=== PATIENT | female | born 1945 | race Caucasian/White ===

== ENCOUNTER → 2019-08-18 | Outpatient (CLI) | payer OTHER, MEDICARE ==
[~2019-08-18] MED LIST: ACCUNEB SO1.25 MG/1 INH; ACETAMINOPHEN325 MG PO; ADVAIR 250-501 EACH INH; ADVAIR HFA 230M12 GM INH; ALEVE220 M1 PO; ALEVE220 MG PO; ASPIRIN325 PO; AVAPRO300 MG PO; AVAPRO75 MG PO; BYSTOLIC 5 MG5 M1 PO; CALCIUM 500 +1 EAC5 PO; CALCIUM CITRATE PO; CENTRUM SILVER1 EAC4 PO; COLACE100 MG PO; COUMADIN 2 MG TA2 M1 PO; COUMADIN 5 MG TA5 M1 PO; GLUCOPHAGE XR500 M1 PO; HYDROCHLOROTHIA25 M2 PO; HYDROCODONE-APA1 TA1 PO; KEFLEX500 MG PO; KLOR-CON M1010 MEQ PO; LACTINEX CHEWA1 EACH PO; LIPITOR 20 MG T20 M1 PO; METFORMIN HCL500 MG PO; PERCOCET 10-321 EACH PO; PROBIOTIC1 EAC1 PO; SENNA LAXATIVE1 EACH PO; TYLENOL325 MG PO; VASCULERA630 MG PO; VITAMIN D2000 UNIT PO; VITAMINC500 PO; XARELTO10 MG PO; XOPENEX HF1 UDINHALE INH
== END ==
LOC: HYPER 07:55
DX: L03.115 Cellulitis of right lower limb (principal); L03.116 Cellulitis of left lower limb; I87.323 Chronic venous hypertension (idiopathic) with inflammation of bilateral lower extremity; I12.9 Hypertensive chronic kidney disease with stage 1 through stage 4 chronic kidney disease, or unspecified chronic kidney disease; N18.3 Chronic kidney disease, stage 3 (moderate); I87.8 Other specified disorders of veins; E66.01 Morbid (severe) obesity due to excess calories; M48.00 Spinal stenosis, site unspecified; M54.5 Low back pain; M94.0 Chondrocostal junction syndrome [Tietze]; M85.80 Other specified disorders of bone density and structure, unspecified site; E55.9 Vitamin D deficiency, unspecified; E78.5 Hyperlipidemia, unspecified; G47.30 Sleep apnea, unspecified; R60.0 Localized edema; R73.9 Hyperglycemia, unspecified; J45.909 Unspecified asthma, uncomplicated; Z79.52 Long term (current) use of systemic steroids; Z79.84 Long term (current) use of oral hypoglycemic drugs; Z99.89 Dependence on other enabling machines and devices; Z68.42 Body mass index [BMI] 45.0-49.9, adult

== ENCOUNTER → 2019-09-13 | Outpatient (CLI) | payer OTHER, MEDICARE | LOC: HYPER 09:05 | DX: I87.323 Chronic venous hypertension (idiopathic) with inflammation of bilateral lower extremity (principal); L03.115 Cellulitis of right lower limb; L03.032 Cellulitis of left toe; E66.01 Morbid (severe) obesity due to excess calories; E78.5 Hyperlipidemia, unspecified; R60.0 Localized edema; R73.9 Hyperglycemia, unspecified; I12.9 Hypertensive chronic kidney disease with stage 1 through stage 4 chronic kidney disease, or unspecified chronic kidney disease; N18.3 Chronic kidney disease, stage 3 (moderate); G47.30 Sleep apnea, unspecified; H40.9 Unspecified glaucoma; J45.909 Unspecified asthma, uncomplicated; M94.0 Chondrocostal junction syndrome [Tietze]; M48.00 Spinal stenosis, site unspecified; M54.5 Low back pain; M17.10 Unilateral primary osteoarthritis, unspecified knee; M85.80 Other specified disorders of bone density and structure, unspecified site; Z99.89 Dependence on other enabling machines and devices; Z68.42 Body mass index [BMI] 45.0-49.9, adult; Z79.52 Long term (current) use of systemic steroids; Z79.84 Long term (current) use of oral hypoglycemic drugs ==

== ENCOUNTER → 2019-10-04 | Outpatient (CLI) | payer OTHER, MEDICARE | LOC: HYPER 12:56 | DX: I87.323 Chronic venous hypertension (idiopathic) with inflammation of bilateral lower extremity (principal); L03.115 Cellulitis of right lower limb; L03.032 Cellulitis of left toe; I87.2 Venous insufficiency (chronic) (peripheral); M48.00 Spinal stenosis, site unspecified; R73.9 Hyperglycemia, unspecified; M94.0 Chondrocostal junction syndrome [Tietze]; I12.9 Hypertensive chronic kidney disease with stage 1 through stage 4 chronic kidney disease, or unspecified chronic kidney disease; N18.3 Chronic kidney disease, stage 3 (moderate); J45.909 Unspecified asthma, uncomplicated; M85.80 Other specified disorders of bone density and structure, unspecified site; H40.9 Unspecified glaucoma; M17.30 Unilateral post-traumatic osteoarthritis, unspecified knee; E78.5 Hyperlipidemia, unspecified; E66.01 Morbid (severe) obesity due to excess calories; G47.30 Sleep apnea, unspecified; Z68.42 Body mass index [BMI] 45.0-49.9, adult; Z99.89 Dependence on other enabling machines and devices; Z79.52 Long term (current) use of systemic steroids; Z79.84 Long term (current) use of oral hypoglycemic drugs ==

== ENCOUNTER → 2020-05-15 | Outpatient (CLI) | payer OTHER, MEDICARE | LOC: SJCVC 10:40 | PROVIDERS: ATTEND Internal Medicine Cardiovascular Disease | DX: I25.10 Atherosclerotic heart disease of native coronary artery without angina pectoris (principal); I49.1 Atrial premature depolarization; R94.31 Abnormal electrocardiogram [ECG] [EKG]; I45.10 Unspecified right bundle-branch block; I10 Essential (primary) hypertension; E78.00 Pure hypercholesterolemia, unspecified; I87.2 Venous insufficiency (chronic) (peripheral); I73.9 Peripheral vascular disease, unspecified; E11.9 Type 2 diabetes mellitus without complications; G47.33 Obstructive sleep apnea (adult) (pediatric); Z79.899 Other long term (current) drug therapy ==

== ENCOUNTER → 2020-05-18 | Outpatient (CLI) | payer OTHER, MEDICARE | LOC: SJCVCIMAG 07:38 | PROVIDERS: ATTEND Internal Medicine Cardiovascular Disease | DX: I08.1 Rheumatic disorders of both mitral and tricuspid valves (principal); I49.3 Ventricular premature depolarization; I45.10 Unspecified right bundle-branch block; I11.9 Hypertensive heart disease without heart failure; I25.10 Atherosclerotic heart disease of native coronary artery without angina pectoris; E78.5 Hyperlipidemia, unspecified; E11.9 Type 2 diabetes mellitus without complications; I73.9 Peripheral vascular disease, unspecified; Z79.899 Other long term (current) drug therapy ==

== ENCOUNTER → 2021-02-02 | Outpatient (CLI) | payer OTHER, MEDICARE | LOC: SJCVC 13:29 | PROVIDERS: ATTEND Internal Medicine Cardiovascular Disease | DX: R94.31 Abnormal electrocardiogram [ECG] [EKG] (principal); I45.10 Unspecified right bundle-branch block; I25.10 Atherosclerotic heart disease of native coronary artery without angina pectoris; I10 Essential (primary) hypertension; E78.00 Pure hypercholesterolemia, unspecified; E11.9 Type 2 diabetes mellitus without complications; G47.33 Obstructive sleep apnea (adult) (pediatric); I87.2 Venous insufficiency (chronic) (peripheral); J45.909 Unspecified asthma, uncomplicated; Z72.89 Other problems related to lifestyle; Z79.82 Long term (current) use of aspirin; Z79.899 Other long term (current) drug therapy; Z88.0 Allergy status to penicillin; Z88.2 Allergy status to sulfonamides ==

== ENCOUNTER 2021-03-11 10:56 | Emergency (ER) | payer OTHER, MEDICARE ==
[~2021-03-11] VITALS: Ht 160 cm; Wt 113.4 kg
[2021-03-11 11:21] LABS: URINE BILIRUBIN NEGATIVE (Negative); URINE BLOOD NEGATIVE (Negative); URINE CLARITY SL CLOUDY; URINE COLOR YELLOW; URINE GLUCOSE-RANDOM* NEGATIVE (Negative); URINE KETONES TRACE (Negative); URINE PROTEIN (DIPSTICK) NEGATIVE (Negative); URINE SPECIFIC GRAVITY 1.025 (1.005-1.035); URINE UROBILINOGEN 0.2 E.U./dl (0.2-1.0)
[2021-03-11 11:22] LABS: URINE LEUKOCYTES-REFLEX 1+ (Negative); URINE NITRITE-REFLEX POSITIVE (Negative)
[2021-03-11 11:29] LABS: AMORPHOUS URATES Moderate /LPF (None Seen); CASTS None Seen /LPF (None Seen); SQUAMOUS >10 Many /LPF (0-3); URINE WBC-REFLEX 6-15 Few /HPF (0-5)
[2021-03-11 11:30] LABS: URINE RBC None Seen /HPF (NONE SEEN)
[2021-03-11 11:30] LABS: ABSOLUTE NEUTROPHILS 5.6 thou/uL (1.4-8.2); BASOPHILS 0.3 % (0.0-2.0); EOSINOPHILS 0.3 % (0.0-3.0); HEMOGLOBIN 13.7 gm/dL (12.0-15.0); LYMPHOCYTES 17.9 % (24.0-44.0); MCH 29.6 pg (26.0-34.0); MCHC 32.6 g/dL (28.0-37.0); MCV 90.8 fL (80.0-100.0); MONOCYTES 9.6 % (1.0-8.0); PLATELET COUNT 138 thou/uL (150-400); POLYS 71.9 % (36.0-66.0); RBC 4.62 mil/uL (4.20-5.00); RDW 14.2 % (10.5-14.5); WBC 7.7 thou/uL (4.0-11.0)
[2021-03-11] MEDS ORDERED: VYZULTA5 ML OPHTHALMIC (11:35)
[2021-03-11] MEDS ORDERED: ATORVASTATIN CA20 MG PO (11:35)
[2021-03-11] MEDS ORDERED: HYDROCHLOROTHIA25 M1 PO (11:35)
[2021-03-11] MEDS ORDERED: ADVAIR 250-501 EACH INH (11:35)
[2021-03-11] MEDS ORDERED: BYSTOLIC 5 MG5 MG PO (11:35)
[2021-03-11] MEDS ORDERED: METFORMIN HCL500 MG PO (11:36)
[2021-03-11] MEDS ORDERED: KLOR-CON 1010 MEQ PO (11:36)
[2021-03-11] MEDS ORDERED: ASPIRIN325 PO (11:36)
[2021-03-11 11:49] LABS: CALCIUM 9.9 mg/dL (8.5-10.1); CREATININE 1.3 mg/dL (0.6-1.0); POTASSIUM 4.3 mmol/L (3.5-5.1)
[2021-03-11 11:53] LABS: ALBUMIN 3.8 g/dL (3.4-5.0); TOTAL BILIRUBIN 0.8 mg/dL (0.2-1.0); TOTAL PROTEIN 7.4 g/dL (6.4-8.2)
[2021-03-11 15:27] LABS: URINE BILIRUBIN NEGATIVE (Negative); URINE BLOOD 2+ (Negative); URINE CLARITY CLEAR; URINE COLOR YELLOW; URINE GLUCOSE-RANDOM* NEGATIVE (Negative); URINE KETONES NEGATIVE (Negative); URINE LEUKOCYTES-REFLEX NEGATIVE (Negative); URINE NITRITE-REFLEX NEGATIVE (Negative); URINE PROTEIN (DIPSTICK) NEGATIVE (Negative); URINE SPECIFIC GRAVITY <= 1.005 (1.005-1.035); URINE UROBILINOGEN 0.2 E.U./dl (0.2-1.0)
[2021-03-11 15:38] LABS: CASTS None Seen /LPF (None Seen); SQUAMOUS 0-3 Few /LPF (0-3); URINE RBC 3-10 Few /HPF (NONE SEEN)
[2021-03-11 15:39] LABS: BACTERIA-REFLEX 1-9 Few /HPF (None Seen); CRYSTALS None Seen /LPF (None Seen); URINE WBC-REFLEX 0-5 Rare /HPF (0-5)
[2021-03-11] MEDS ORDERED: CIPRO250 M2 PO (15:49)
[2021-03-11 15:57] VITALS: BP 110/54
== END 2021-03-11 15:57 | disposition home or self-care (01) ==
LOC: ER 10:56
PROVIDERS: Emergency Medicine Emergency Medical Services
DX: K58.9 Irritable bowel syndrome, unspecified (principal); N39.0 Urinary tract infection, site not specified; I10 Essential (primary) hypertension; J45.909 Unspecified asthma, uncomplicated; E78.00 Pure hypercholesterolemia, unspecified; E66.9 Obesity, unspecified; Z98.890 Other specified postprocedural states; Z86.2 Personal history of diseases of the blood and blood-forming organs and certain disorders involving the immune mechanism; Z88.0 Allergy status to penicillin; Z88.2 Allergy status to sulfonamides

== ENCOUNTER → 2021-08-24 | Outpatient (CLI) | payer OTHER, MEDICARE ==
[~2021-08-24] MED LIST changes: +ATORVASTATIN CA20 MG PO; +BYSTOLIC 5 MG5 MG PO; +CIPRO250 M2 PO; +HYDROCHLOROTHIA25 M1 PO; +KLOR-CON 1010 MEQ PO; +VYZULTA5 ML OPHTHALMIC
== END ==
LOC: SJCVC 13:35
PROVIDERS: ATTEND Internal Medicine Cardiovascular Disease
DX: I87.2 Venous insufficiency (chronic) (peripheral) (principal); I10 Essential (primary) hypertension; I25.10 Atherosclerotic heart disease of native coronary artery without angina pectoris; I45.10 Unspecified right bundle-branch block; L98.8 Other specified disorders of the skin and subcutaneous tissue; I48.91 Unspecified atrial fibrillation; R94.31 Abnormal electrocardiogram [ECG] [EKG]; E78.00 Pure hypercholesterolemia, unspecified; E11.9 Type 2 diabetes mellitus without complications; G47.33 Obstructive sleep apnea (adult) (pediatric); E78.5 Hyperlipidemia, unspecified; Z79.82 Long term (current) use of aspirin; Z79.899 Other long term (current) drug therapy; Z72.89 Other problems related to lifestyle; Z88.8 Allergy status to other drugs, medicaments and biological substances

== ENCOUNTER → 2021-09-24 | Outpatient (CLI) | payer OTHER, MEDICARE | LOC: SJCVCIMAG 07:16 | PROVIDERS: ATTEND Nuclear Medicine Nuclear Cardiology | DX: I82.4Z3 Acute embolism and thrombosis of unspecified deep veins of distal lower extremity, bilateral (principal); I87.2 Venous insufficiency (chronic) (peripheral); R60.0 Localized edema; E11.9 Type 2 diabetes mellitus without complications; G47.33 Obstructive sleep apnea (adult) (pediatric); I10 Essential (primary) hypertension; I25.10 Atherosclerotic heart disease of native coronary artery without angina pectoris; E78.5 Hyperlipidemia, unspecified ==